=== PATIENT | male | born 1990 | race Caucasian/White ===

== ENCOUNTER 2021-09-25 00:25 | Emergency (ER) | payer OTHER, BC ==
[2021-09-25] MEDS ORDERED: Sodium Chloride 0.9% 1,000 ML IV ONE (00:26)
[2021-09-25] MEDS ORDERED: Diphtheria,Pertussis(Acell),Tetanus Vaccine 0.5 ML Syringe IM ONE (00:28)
[2021-09-25 01:01] LABS: BLOOD UREA NITROGEN,BUN 10 mg/dL (7.0-18.0); CARBON DIOXIDE,CO2 22.6 mmol/L (21.0-32.0); CHLORIDE,CL 105 mmol/L (98-107); GLUCOSE RANDOM 131 mg/dL (74-106); POTASSIUM,K 3.1 mmol/L (3.5-5.1); SODIUM,NA 143 mmol/L (136-148)
[2021-09-25] MEDS ORDERED: Iopamidol 755 MG/ML 500 ML Multipack Bottle IVPUSH ONE (01:10)
[2021-09-25] MEDS ORDERED: Lactated Ringers 1,000 ML IV ONE (01:11)
[2021-09-25] MEDS ORDERED: Morphine 4 MG/ML VIAL IVPUSH ONE (02:03)
[2021-09-25] MEDS ORDERED: Cephalexin 500 MG Cap PO STA (03:11)
== END 2021-09-25 03:30 | disposition home or self-care (01) ==
LOC: MW.ED 00:25
DX: S02.831A Fracture of medial orbital wall, right side, initial encounter for closed fracture (principal); S00.03XA Contusion of scalp, initial encounter; S00.12XA Contusion of left eyelid and periocular area, initial encounter; F10.129 Alcohol abuse with intoxication, unspecified; Z23 Encounter for immunization; Y90.7 Blood alcohol level of 200-239 mg/100 ml; V89.2XXA Person injured in unspecified motor-vehicle accident, traffic, initial encounter; Y92.410 Unspecified street and highway as the place of occurrence of the external cause
CPT/HCPCS: 36415; 70450; 70486; 71045; 71260; 72125; 72170; 74177; 80053; 80305; 80307; 81001; 82550; 83735; 84484; 85025; 90471; 90715; 93005; 96374; 99285; A9270; J2270; J7030; J7120; Q9967; 93010; 99291; 99292